=== PATIENT | female | born 2000 | race African-American/Black ===

== ENCOUNTER 2019-07-02 06:21 | Emergency (ER) | payer OTHER, SELFPAY ==
--- NOTE | 2019-07-02 06:25 | DI.RAD.S_ITS ---
PROCEDURE: XR CHEST 2V INDICATIONS: Shortness of breath TECHNIQUE: 2 views of the chest were acquired. COMPARISON: None. FINDINGS: Surgical changes and devices: None. Lungs and pleura: Lungs are clear. No pleural effusions or pneumothorax. Mediastinum: Mediastinal contours are normal. Heart size is normal. Bones and chest wall: No suspicious bony abnormalities. Soft tissues appear unremarkable. IMPRESSION: Normal for age, source of current shortness of breath symptoms is not seen. Dictated by: Kong Jimenez M.D. on 07/02/2019 at 9:03 Approved by: Kong Jimenez M.D. on 07/02/2019 at 9:04
[2019-07-02 06:28] VITALS: BP 124/75; PULSE 90; RESP 17; TEMP 37.1; O2SAT 100; BMI 27.0
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
== END 2019-07-02 07:15 | disposition home or self-care (01) ==
PROVIDERS: Emergency Provider Emergency Medicine
DX: R07.89 Other chest pain (principal)
CPT/HCPCS: 71046; 93005; 99282; 99284

== ENCOUNTER → 2020-06-15 21:16 | Outpatient (ROUT) | payer SELFPAY ==
[2020-06-17 09:38] LABS: COVID19 Sendout Not Detected (Not Detect)
== END ==
PROVIDERS: Visit Provider Internal Medicine
DX: Z11.59 Encounter for screening for other viral diseases (principal)
CPT/HCPCS: 87635

== ENCOUNTER 2020-07-01 22:24 | Emergency (ER) | payer OTHER, SELFPAY ==
[2020-07-01 22:30] VITALS: BP 130/79; PULSE 79; RESP 20; TEMP 36.6; O2SAT 99
--- NOTE | 2020-07-01 22:35 | ED_ITS ---
HPI - Headache General Chief Complaint: Headache Stated Complaint: fell at work & hit head Time Seen by Provider: 07/01/20 22:28 Source: patient Mode of arrival: Ambulatory Limitations: no limitations History of Present Illness HPI Narrative: 19F non smoker with noncontributory medical history presents with a chief complaint of an accidental head injury while working earlier tonight. 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 She denies loss of consciousness, nausea or vomiting. She denies the use of alcohol, street drugs or blood thinners. She denies other injuries such as neck or back pain. She denies neurologic symptoms such as numbness, tingling or weakness. She has a lingering, mild headache. Related Data Previous Rx's Medication Instructions Recorded cyclobenzaprine 10 mg PO TID PRN #14 tab 07/02/19 ketorolac 10 mg PO Q6H PRN #14 tab 07/02/19 Allergies Allergy/AdvReac Type Severity Reaction Status Date / Time No Known Drug Allergies Allergy Verified 07/02/19 06:30 Review of Systems Constitutional Constitutional: Denies chills, Denies fatigue, Denies fever(s), Denies frequent falls, Reports headache(s), Denies lethargy and Denies weakness Eyes Eyes: Denies change in vision, Denies eye discharge, Denies irritation and Denies loss of vision ENT Ears, Nose, Mouth, and Throat: Denies change in voice, Denies dizziness, Reports headache(s), Denies neck pain, Denies sore throat and Denies throat swelling Cardiovascular Cardiovascular: Denies chest pain, Denies irregular heart rhythm, Denies li ghtheadedness, Denies palpitations, Denies dyspnea, Denies dyspnea on exertion and Denies orthopnea Respiratory Respiratory: Denies cough, Denies dyspnea, Denies dyspnea on exertion and Denies wheezing Gastrointestinal Gastrointestinal: Denies abdominal pain, Denies change in bowel habits, Denies diarrhea, Denies nausea and Denies vomiting Musculoskeletal Musculoskeletal: Denies neck pain and Denies numbness Integumentary/Breasts Skin/Breast: Denies pruritus, Denies erythema, Denies rash and Denies wounds Neurologic Neurologic: Denies behavioral changes, Denies confusion, Denies dizziness, Denies frequent falls, Reports headache(s), Denies loss of vision, Denies numbness and Denies weakness Psychiatric Psychiatric: Denies anxiety, Denies behavioral changes, Denies confusion, Denies depression, Denies homicidal ideation and Denies suicidal ideation Endocrine Endocrine: Denies fatigue, Denies flushing and Denies palpitations Hematologic/Lymphatic Hematologic/Lymphatic: Denies easy bruising Allergic/Immunologic Allergic/Immunologic: Denies urticaria, Denies throat swelling and Denies wheezing Patient History Social History Smoking Status: Never smoker Smoking Status: Never smoker alcohol intake frequency: 0-2 drinks per day Substance Use Type: does not use Exam Narrative Exam Narrative: GENERAL: [19] year old patient appears stated age. Well- nourished, well-developed patient, in mild distress. GCS 15 HEAD: Atraumatic. Normocephalic. EYES: Pupils equal round and reactive. Extraocular motions intact. No scleral icterus. No injection or drainage. ENT: Nose without bleeding, purulent drainage. Throat without erythema, tonsillar hypertrophy or exudate. Airway patent. NECK: Trachea midline. Non tender CARDIOVASCULAR: Regular rate and rhythm without murmurs, gallops, or rubs. RESPIRATORY: Clear to auscultation. Breath sounds equal bilaterally. No wheezes, rales, or rhonchi. GASTROINTESTINAL: Abdomen soft, non-tender, nondistended. EXTREMITIES: No edema or joint tenderness. BACK: Nontender without deformity or crepitance. No flank tenderness. NEURO: AOx3. SKIN: No rash or erythema of visible areas Initial Vital Signs Initial Vital Signs: Vital Signs Temperature 97.9 F 07/01/20 22:30 Pulse Rate 79 07/01/20 22:30 Respiratory Rate 20 07/01/20 22:30 Blood Pressure 130/79 07/01/20 22:30 Pulse Oximetry 99 07/01/20 22:30 Scores GCS Lianna coma scale eye opening: Spontaneous Lianna coma scale verbal response: Orientated [place] coma scale motor response: Obey commands Lianna coma scale total score: 15 Course Course Course Narrative: [facility] CT Head Injury/Trauma Rule from [email or web address] on 07/02/2020 All calculations should be rechecked by clinician prior to use RESULT SUMMARY: CT Unnecessary The [place] Head CT Rule suggests a head CT is not necessary for this patient (sensitivity 83-100% for all intracranial traumatic findings, sensitivity 100% for findings requiring neurosurgical intervention). INPUTS: Age ?> 0 = No Patient on blood thinners ?> 0 = No Seizure after injury ?> 0 = No GCS ?> 0 = No Suspected open or depressed skull fracture ?> 0 = No Any sign of basilar skull fracture? ?> 0 = No ?2 episodes of vomiting ?> 0 = No Age ?63 years ?> 0 = No Retrograde amnesia to the event ? 30 minutes ?> 0 = No ?Dangerous? mechanism? ?> 0 = No Vital Signs Vital signs: Vital Signs - 8 hr 07/01/20 22:30 Temperature 97.9 F Pulse Rate 79 Respiratory Rate 20 Blood Pressure 130/79 Pulse Oximetry 99 Discharge Plan Departure Patient Disposition: Home Clinical Impression: Headache Qualifiers: Headache type: unspecified Headache chronicity pattern: unspecified pattern Intractability: not intractable Qualified Code(s): R51 - Headache Concussion Qualifiers: Encounter type: initial encounter Loss of consciousness presence/duration: without LOC Qualified Code(s): S06.0X0A - Concussion without loss of consciousness, initial encounter Discharge Date/Time: 07/01/20 22:48 Instructions: DI for Headache Activity Restrictions/Additional Instructions: You have a slight concussion and will likely have a mild headache and some nausea for a few days. Avoiding highly stimulating activities and even TV or computers may be helpful in minimizing your symptoms. Avoid activities that will put you at risk for another head injury for at least a week. You can take tylenol or motrin for headache Return for worsening or persistent symptoms Prescriptions: No Action cyclobenzaprine 10 mg tablet 10 mg PO TID PRN (Reason: muscle spasm) Qty: 14 RF: 0 ketorolac 10 mg tablet 10 mg PO Q6H PRN (Reason: pain) Qty: 14 RF: 0
== END 2020-07-01 22:48 | disposition home or self-care (01) ==
PROVIDERS: Emergency Provider Emergency Medicine
DX: S06.0X0A Concussion without loss of consciousness, initial encounter (principal); W01.198A Fall on same level from slipping, tripping and stumbling with subsequent striking against other object, initial encounter; Y99.0 Civilian activity done for income or pay
CPT/HCPCS: 99281

== ENCOUNTER → 2020-11-30 17:55 | Outpatient (CLI) | payer OTHER, SELFPAY ==
[2020-12-03 02:52] LABS: Chlamydia trachomatis NAA Positive (Negative); Neisseria gonorrhoeae NAA Negative (Negative)
== END ==
PROVIDERS: Visit Provider Physician Assistant
DX: N34.3 Urethral syndrome, unspecified (principal); N89.8 Other specified noninflammatory disorders of vagina
CPT/HCPCS: 87077; 87086; 87186; 87210; 87491; 87591

== ENCOUNTER 2021-10-05 15:17 | Emergency (ER) | payer OTHER, SELFPAY ==
[2021-10-05 15:21] VITALS: BP 118/74; PULSE 97; RESP 22; TEMP 37.2; O2SAT 100
--- NOTE | 2021-10-05 15:36 | DI.RAD.S_ITS ---
PROCEDURE: XR CHEST 2V INDICATIONS: soa TECHNIQUE: 2 views of the chest were acquired. COMPARISON: [facility], CR, XR CHEST 2V, 07/02/2019, 6:27. FINDINGS: Surgical changes and devices: None. Lungs and pleura: Lungs are clear. No pleural effusions or pneumothorax. Mediastinum: Mediastinal contours are normal. Heart size is normal. Bones and chest wall: No suspicious bony abnormalities. Soft tissues appear unremarkable. IMPRESSION: No acute cardiopulmonary process demonstrated radiographically. Dictated by: Richar López M.D. on 10/05/2021 at 16:13 Approved by: Richar López M.D. on 10/05/2021 at 16:13
[2021-10-05] MEDS: predniSONE 20 MG TABLET 60 MG PO (15:37)
[2021-10-05] MEDS: diphenhydrAMINE 25 MG TABLET PO (15:37)
== END 2021-10-05 18:06 | disposition left against medical advice (07) ==
PROVIDERS: Emergency Provider Emergency Medicine
DX: R06.00 Dyspnea, unspecified (principal); R21 Rash and other nonspecific skin eruption
CPT/HCPCS: 71046; 99283

== ENCOUNTER 2022-03-11 13:00 | Emergency (ER) | payer OTHER, SELFPAY ==
[2022-03-11 13:25] VITALS: BP 127/68; PULSE 82; RESP 14; TEMP 36.9; O2SAT 100; BMI 32.1
--- NOTE | 2022-03-11 14:16 | ED.FEMALEGU ---
HPI - Female Genitourinary <YNES Delgadillo - Last Filed: 03/11/22 17:55> General Chief complaint: Urogenital-Female Stated complaint: UTI Time Seen by Provider: 03/11/22 14:16 Source: patient Mode of arrival: Ambulatory History of Present Illness HPI Narrative: This is a 21-year-old female presents to the emergency department complaining of dysuria and hematuria which started today, she states that she has had dysuria and bladder spasms for the last 3 days. Has been drinking water, taking ibuprofen and has not improved. Patient states she works a double shift today, and got concerned when she started peeing blood. She denies fever, endorses nausea without vomiting or diarrhea. She states that she has fatigue, denies any muscle aches. Related Data Previous Rx's Medication Instructions Recorded cyclobenzaprine 10 mg tablet 10 mg PO TID PRN #14 tab 07/02/19 ketorolac 10 mg tablet 10 mg PO Q6H PRN #14 tab 07/02/19 azithromycin 500 mg tablet 1,000 mg PO ONCE #2 tab 12/03/20 phenazopyridine 100 mg tablet 100 mg PO TID PRN #7 tab 03/11/22 (Pyridium) sulfamethoxazole 800 1 tab PO BID 5 Days #10 tab 03/11/22 mg-trimethoprim 160 mg tablet (Bactrim DS) Allergies Allergy/AdvReac Type Severity Reaction Status Date / Time No Known Drug Allergies Allergy Verified 03/11/22 13:25 Review of Systems <YNES Delgadillo - Last Filed: 03/11/22 17:55> Review of Systems Narrative: General: denies fever, chills, malaise, sweats, fatigue Head/Neck: denies headache, neck pain, dizziness Eyes: denies visual changes, eye pain Cardio: denies chest pain, palpitations, edema Respiratory: denies dyspnea, cough, orthopnea GI: denies abdominal pain, nausea, vomiting, or diarrhea : Endorses dysuria, hematuria, denies urinary retention, frequency or incontinence MSK: denies joint pain, muscle weakness Skin: denies rash, itching, skin lesions or other Neuro: denies numbness, tingling Patient History <YNES Delgadillo - Last Filed: 03/11/22 17:55> Medical History Routine screening for STI (sexually transmitted infection) UTI (urinary tract infection) tobacco type: vaping alcohol intake frequency: holidays/special occasions only Substance Use Type: does not use Exam <YNES Delgadillo - Last Filed: 03/11/22 17:55> Narrative Exam Narrative: Independently reviewed vitals signs and nursing notes. General: cooperative, comfortable, in no acute distress, well developed and well groomed Head: atraumatic, symmetrical facial expressions Neck: supple, atraumatic, without lymphadenopathy. Eyes: pupils equal round and reactive, EOMI, conjunctiva normal Nose: nares patent, no rhinorrhea Mouth/Throat: uvula midline, moist mucus membranes Cardiovascular: regular rate and rhythm, no peripheral edema, warm extremities Respiratory: normal effort, able to speak in complete sentences, no audible wheezing, stridor, or rales. No retractions or tachypnea. GI: abdomen soft, nontender to palpation, nondistended, no masses, no exquisite tenderness with exam, without guarding or rebound. MSK: moves all extremities, ambulatory w/steady gait, neurovascularly intact, no weakness Skin: brisk capillary refill, no rash, no erythema Neuro: normal speech and cognition, A&O x3, normal tone Psych: mental status is grossly normal, congruent mood, normal affect, pleasant and cooperative Initial Vital Signs Initial Vital Signs: Vital Signs Temperature 98.5 F 03/11/22 13:25 Pulse Rate 82 03/11/22 13:25 Respiratory Rate 14 03/11/22 13:25 Blood Pressure 127/68 03/11/22 13:25 Pulse Oximetry 100 03/11/22 13:25 <Everton Rodriguez DO - Last Filed: 03/11/22 17:58> Initial Vital Signs Initial Vital Signs: Vital Signs Temperature 98.5 F 03/11/22 13:25 Pulse Rate 82 03/11/22 13:25 Respiratory Rate 14 03/11/22 13:25 Blood Pressure 127/68 03/11/22 13:25 Pulse Oximetry 100 03/11/22 13:25 Course <YENS Delgadillo - Last Filed: 03/11/22 17:55> Orders Ordered: ED Orders 03/11/22 13:30 Urine Culture Stat Urine Microscopic Stat Discontinued Medications Ketorolac Tromethamine (Ketorolac 10 Mg Tablet) 10 mg PO NOW ONE Stop: 03/11/22 14:22 Last Admin: 03/11/22 14:35 Dose: Not Given Documented by: KASIA Phenazopyridine HCl (Phenazopyridine 100 Mg Tablet) 100 mg PO NOW ONE Stop: 03/11/22 14:22 Last Admin: 03/11/22 14:35 Dose: Not Given Documented by: KASIA Trimethoprim/Sulfamethoxazole (Trimeth/Sulfa 160/800 (Ds) Tablet) 1 tab PO NOW ONE Stop: 03/11/22 14:22 Last Admin: 03/11/22 14:35 Dose: Not Given Documented by: KASIA Vital Signs Vital signs: Vital Signs - 8 hr 03/11/22 13:25 Temperature 98.5 F Pulse Rate 82 Respiratory Rate 14 Blood Pressure 127/68 Pulse Oximetry 100 <Everton Rodriguez DO - Last Filed: 03/11/22 17:58> Orders Ordered: ED Orders 03/11/22 13:30 Urine Culture Stat Urine Microscopic Stat Discontinued Medications Ketorolac Tromethamine (Ketorolac 10 Mg Tablet) 10 mg PO NOW ONE Stop: 03/11/22 14:22 Last Admin: 03/11/22 14:35 Dose: Not Given Documented by: KASIA Phenazopyridine HCl (Phenazopyridine 100 Mg Tablet) 100 mg PO NOW ONE Stop: 03/11/22 14:22 Last Admin: 03/11/22 14:35 Dose: Not Given Documented by: KASIA Trimethoprim/Sulfamethoxazole (Trimeth/Sulfa 160/800 (Ds) Tablet) 1 tab PO NOW ONE Stop: 03/11/22 14:22 Last Admin: 03/11/22 14:35 Dose: Not Given Documented by: KASIA Vital Signs Vital signs: Vital Signs - 8 hr 03/11/22 13:25 Temperature 98.5 F Pulse Rate 82 Respiratory Rate 14 Blood Pressure 127/68 Pulse Oximetry 100 MDM - Female Genitourinary <YNES Delgadillo - Last Filed: 03/11/22 17:55> Lab Data Labs: Lab Results 03/11/22 Range/Units 13:30 Urine RBC 30-100/hpf H (0-5/HPF) Urine WBC 30-100/hpf H (0-5/HPF) Ur Squamous Epith Cells 5-10 /hpf H (0-5/HPF) Urine Bacteria Many (>30) H (None) Ur Culture Indicated? Specimen cultured Point of Care Testing Test Results Negative Urine Dip Bedside Urine Glucose Negative Bedside Urine Bilirubin - Negative Bedside Urine Ketone - Negative Urine Specific [place] 1.030 Bedside Urine Occult Blood +++ Bedside Urine pH 6.0 Bedside Urine Protein ++ 100 Bedside Urine Urobilinogen - Negative Bedside Urine Nitrite - Negative Bedside Urine Leukocytes ++ 125 Esterase MDM Narrative Medical decision making narrative: This is a 21-year-old female presents to the emergency department with dysuria, hematuria, nausea and bladder spasms with onset of symptoms 3 days ago. Patient states hematuria started today with nausea. She denies fever, vomiting, flank pain, or abnormal vaginal discharge. Patient's urine shows leukocytes and blood, test was negative. Patient has a prior urine culture which grew Proteus mirabilis which was resistant only to nitrofurantoin. Patient was treated today with Bactrim, Pyridium, and p.o. Toradol for her pain. Encouraged to stay hydrated, return to the emergency department for any worsening of her symptoms, encouraged to follow-up with her primary doctor or return to the ER for worsening. No peritoneal signs on abdominal exam. Patient remains p.o. tolerant. Serial abdominal exam without increase in abdominal pain. Given history and exam, low suspicion for acute abdominal process, such as acute cholecystitis, pancreatitis, perforated viscus, atypical appendicitis, colitis, diverticulitis or torsion. Extensive conversation about ER return precautions and need for close follow-up. <Everton Rodriguez, - Last Filed: 03/11/22 17:58> Lab Data Labs: Lab Results 03/11/22 Range/Units 13:30 Urine RBC 30-100/hpf H (0-5/HPF) Urine WBC 30-100/hpf H (0-5/HPF) Ur Squamous Epith Cells 5-10 /hpf H (0-5/HPF) Urine Bacteria Many (>30) H (None) Ur Culture Indicated? Specimen cultured Point of Care Testing Test Results Negative Urine Dip Bedside Urine Glucose Negative Bedside Urine Bilirubin - Negative Bedside Urine Ketone - Negative Urine Specific [place] 1.030 Bedside Urine Occult Blood +++ Bedside Urine pH 6.0 Bedside Urine Protein ++ 100 Bedside Urine Urobilinogen - Negative Bedside Urine Nitrite - Negative Bedside Urine Leukocytes ++ 125 Esterase Discharge Plan Departure Patient Disposition: Home Clinical Impression: Acute cystitis Qualifiers: Hematuria presence: with hematuria Qualified Code(s): N30.01 - Acute cystitis with hematuria Instructions: DI for Urinary Tract Infection (UTI) Activity Restrictions/Additional Instructions: *You have been diagnosed with acute cystitis with hematuria. Please take these antibiotics twice a day for the next 5 days, use Pyridium as needed for bladder pain and spasm, take ibuprofen and Tylenol as needed for pain, and stay hydrated drinking plenty of water today and tomorrow. If you have abnormal vaginal discharge, please follow-up with your primary doctor or return to the ER for a secondary evaluation of your symptoms. Thank you for trusting us with your care, if you do not improve, please be seen again. Hope that you feel better soon. *What to do: *Please continue to take your regular medications as directed. [x ] New medication prescriptions sent to your pharmacy: [ [facility]] [ ] New medication written as a paper prescription [ ] No new medications given *Please follow up with your primary care provider in 2-3 days, call for an appointment. Let them know you were seen in the Emergency Department and that we asked that you be seen for follow-up. We will electronically transmit a record of today's note if your PCP is in our system *If you do not have a primary care provider please contact [phone] to establish care with one of the [facility] primary care providers. *Return to Emergency Department if you should have any new, worsening or concerning symptoms, such as [fever greater than 101F, chills, worsening pain, persistent vomiting or other bothersome symptoms] Prescriptions: New sulfamethoxazole-trimethoprim [Bactrim DS] 800-160 mg tablet 1 tab PO BID 5 Days Qty: 10 0RF phenazopyridine [Pyridium] 100 mg tablet 100 mg PO TID PRN (Reason: pain) Qty: 7 0RF No Action azithromycin 500 mg tablet 1,000 mg PO ONCE Qty: 2 0RF cyclobenzaprine 10 mg tablet 10 mg PO TID PRN (Reason: muscle spasm) Qty: 14 0RF ketorolac 10 mg tablet 10 mg PO Q6H PRN (Reason: pain) Qty: 14 0RF <Everton Rodriguez, DO - Last Filed: 03/11/22 17:58> Cosign ED Attending Cosignature Attestation: Dr Rodriguez Co-Sign Statement: I was available for consultation during this patient's emergency department visit. This chart is signed by myself for administrative purposes only. I did not have direct contact with this patient during this visit. They were seen independently by the APC.
[2022-03-11 14:32] LABS: Bacteria Urine Many (>30); Culture Indicated Urine Specimen Cultured; RBC Urine 30-100/HPF (0-5/HPF); Squamous Epithelial Cell Urine 5-10 /HPF (0-5/HPF); WBC Urine 30-100/HPF (0-5/HPF)
== END 2022-03-11 14:36 | disposition home or self-care (01) ==
PROVIDERS: Emergency Medicine; Emergency Provider Nurse Practitioner Critical Care Medicine
DX: N30.01 Acute cystitis with hematuria (principal)
CPT/HCPCS: 81003; 81015; 81025; 87077; 87086; 87186; 99282